=== PATIENT | female | born 2000 | race Caucasian/White ===

== ENCOUNTER 2021-04-27 15:15 | Inpatient (IN) | payer BC ==
[2021-04-27] MEDS ORDERED: Methylergonovine 0.2 MG/1 ML Amp IM PRN (16:03)
[2021-04-27] MEDS ORDERED: Misoprostol 200 MCG Tab PO PRN (16:03)
[2021-04-27] MEDS ORDERED: Water For Irrigation,Sterile 1,000 ML Container IRR PRN (16:03)
[2021-04-27] MEDS ORDERED: Tranexamic Acid 1,000 MG in Sodium Chloride 0.9% 100 ML IV PRN (16:03)
[2021-04-27] MEDS ORDERED: Butorphanol 1 MG/ML SDV IVPUSH PRN (16:03)
[2021-04-27] MEDS ORDERED: Sodium Chloride 0.9% 2.5 ML Syringe FLUSH PRN (16:03)
[2021-04-27] MEDS ORDERED: Sodium Chloride 0.9% 10 ML Syringe FLUSH PRN (16:03)
[2021-04-27] MEDS ORDERED: Ondansetron 4 MG/2 ML SDV IVPUSH PRN ×2 (16:03→23:49)
[2021-04-27] MEDS ORDERED: Carboprost Tromethamine 250 MCG/1 ML Amp IM PRN (16:03)
[2021-04-27] MEDS ORDERED: Sodium Chloride 0.9% 10 ML SDV IV PRN (16:03)
[2021-04-27] MEDS ORDERED: Nalbuphine 10 MG/1 ML Vial IVPUSH PRN (16:03)
[2021-04-27] MEDS ORDERED: Lidocaine 1% 50 ML MDV INJECT PRN (16:03)
[2021-04-27] MEDS ORDERED: Misoprostol 25 MCG (1/4 of 100 MCG) Tab VAG PRN ×2 (16:08)
[2021-04-27] MEDS ORDERED: Terbutaline 1 MG/ML SDV SUBCUT PRN (16:08)
[2021-04-27] MEDS ORDERED: Oxytocin/0.9 % Sodium Chloride 30 UNIT/500 ML BAG IV SCH ×3 (16:15→22:15)
[2021-04-27] MEDS ORDERED: ceFAZolin 2 GM in Premix Bag 1 BAG IV ONE ×2 (17:00→22:07)
[2021-04-27] MEDS: Lactated Ringers 1,000 ML IV SCH ×4 (17:19→23:45)
[2021-04-27 17:24] LABS: BLOOD UREA NITROGEN,BUN 6 mg/dL (7.0-18.0); CARBON DIOXIDE,CO2 17.9 mmol/L (21.0-32.0); CHLORIDE,CL 104 mmol/L (98-107); GLUCOSE RANDOM 72 mg/dL (74-106); POTASSIUM,K 4.2 mmol/L (3.5-5.1); SODIUM,NA 138 mmol/L (136-145)
--- NOTE | 2021-04-27 17:53 | PCM.LDHP ---
L&D History of Present Illness - General Date of Service: 04/27/21 Admit Problem/Dx: Patient Status Order with Admit Dx/Problem 04/27/21 16:00 Patient Status [ADT] Routine Admission Diagnosis/Problem Admission Diagnosis/Problem - History of Present Illness Introduction:: 21yo at 38w4d FIDEL 05/07/2021 by 7w6d US presenting with early labor and rupture of membranes. Patient reports this morning she noticed a small amount of leaking, when she work up at noon she had a bigger gush and bed was wet. She also started having contractions around that time, now is stronger and every 3- 4min. She reports noticed her underwear was consistently wet starting last night, but did not have a large gush. She is GBS+, reports a remote hx of rash with PCN but did take amoxicillin without issues. was complicated by echogenic focus on US, had otherwise normal anatomy. She had cell free DNA testing which was negative. She had weekly testing starting at 37weeks due to obesity. EFW 82% on US (3843g at 39 weeks). She received first dose of Moderna COVID19 vaccine on 04/08/21. - Related Data Allergies/Adverse Reactions: Allergies Allergy/AdvReac Type Severity Reaction Status Date / Time cefixime [From Suprax] Allergy Hives Verified 04/27/21 15:19 Penicillins Allergy Hives Verified 04/27/21 15:20 Past Medical History HEENT History: Reports: None Gastrointestinal History: Reports: Cholelithiasis [employer] History: Reports: None Neurological History: Reports: None Endocrine/Metabolic History: Reports: None Do You Give Correction Boluses or Sliding Scale: No Dermatologic History: Reports: None - Infectious Disease History Infectious Disease History: Reports: None - Past Surgical History Head Surgeries/Procedures: Reports: None HEENT Surgical History: Reports: None Respiratory Surgical History: Reports: None Female Surgical History: Reports: None Endocrine Surgical History: Reports: None Neurological Surgical History: Reports: None Musculoskeletal Surgical History: Reports: None Dermatological Surgical History: Reports: None Social & Family History - Family History HEENT: Reports: None Cardiac: Reports: Hypertension GI: Reports: None - Tobacco Use Tobacco Use Status *Q: Former Tobacco User Used Tobacco, but Quit: Yes Month/Year Tobacco Last Used: 2018 Second Hand Smoke Exposure: No - Caffeine Use Caffeine Use: Reports: Coffee, Energy Drinks, Soda, Tea - Recreational Drug Use Recreational Drug Use: No H&P Review of Systems - Review of Systems: Review Of Systems: See Below General: Reports: No Symptoms HEENT: Reports: No Symptoms Pulmonary: Reports: No Symptoms Cardiovascular: Reports: No Symptoms Gastrointestinal: Reports: No Symptoms Genitourinary: Reports: No Symptoms Musculoskeletal: Reports: No Symptoms Skin: Reports: No Symptoms Psychiatric: Reports: No Symptoms Neurological: Reports: No Symptoms Hematologic/Lymphatic: Reports: No Symptoms Immunologic: Reports: No Symptoms L&D Exam - Exam Exam: See Below - Vital Signs Weight: 250 lb - OB Specific Contraction Frequency (min): q3-4min Contraction Intensity: Moderate Movement: Active Heart Tones per Min: 120 Heart Rate (FHR) Variability: Moderate (6-25 bpm) Presentation: Vertex Estimated Weight: 3843g - Exam General: Alert, Oriented, Cooperative, Mild Distress HEENT: Conjunctiva Clear, Mucosa Moist & [place] Neck: Supple, Trachea Midline Lungs: Normal Respiratory Effort GI/Abdominal Exam: Soft, Non-Tender, No Distention Back Exam: Normal Inspection, Full Range of Motion Extremities: Normal Inspection, Normal Range of Motion, Non-Tender, No Pedal Edema Skin: Warm, Dry, Intact Neurological: Cranial Nerves Intact, Reflexes Equal Bilateral Psychiatric: Alert, Normal Affect, Normal Mood - Patient Data Lab Results Last 24 hrs: Laboratory Results - last 24 hr 04/27/21 04/27/21 04/27/21 Range/Units 15:15 16:10 16:35 WBC 10.26 (4.0-11.0) K/uL RBC 4.85 (4.30-5.90) M/uL Hgb 13.0 (12.0-16.0) g/dL Hct 39.6 (36.0-46.0) % MCV 81.6 (80.0-98.0) fL MCH 26.8 L (27.0-32.0) pg MCHC 32.8 (31.0-37.0) g/dL RDW Std Deviation 43.3 (28.0-62.0) fl RDW Coeff of Kyle 15 (11.0-15.0) % Plt Count 281 (150-400) K/uL MPV 10.50 (7.40-12.00) fL Sodium (136-145) mmol/L Potassium (3.5-5.1) mmol/L Chloride (98-107) mmol/L Carbon Dioxide (21.0-32.0) mmol/L BUN (7.0-18.0) mg/dL Creatinine (0.6-1.0) mg/dL Est Cr Clr Drug Dosing mL/min Estimated GFR (MDRD) ml/min Glucose (74-106) mg/dL Uric Acid (2.6-7.2) mg/dL Calcium (8.5-10.1) mg/dL Total Bilirubin (0.2-1.0) mg/dL AST (15-37) IU/L ALT (14-63) IU/L Alkaline Phosphatase (46-116) U/L Total Protein (6.4-8.2) g/dL Albumin (3.4-5.0) g/dL Globulin (2.6-4.0) g/dL Albumin/Globulin Ratio (0.9-1.6) Ur Random Creatinine 105.2 mg/dL U Random Total Protein 19.5 H (<11.9) mg/dL Protein/Creatinin Ratio 0.2 Membrane Rupture POSITIVE 04/27/21 Range/Units 16:35 WBC (4.0-11.0) K/uL RBC (4.30-5.90) M/uL Hgb (12.0-16.0) g/dL Hct (36.0-46.0) % MCV (80.0-98.0) fL MCH (27.0-32.0) pg MCHC (31.0-37.0) g/dL RDW Std Deviation (28.0-62.0) fl RDW Coeff of Kyle (11.0-15.0) % Plt Count (150-400) K/uL MPV (7.40-12.00) fL Sodium 138 (136-145) mmol/L Potassium 4.2 (3.5-5.1) mmol/L Chloride 104 (98-107) mmol/L Carbon Dioxide 17.9 L (21.0-32.0) mmol/L BUN 6 L (7.0-18.0) mg/dL Creatinine 0.7 (0.6-1.0) mg/dL Est Cr Clr Drug Dosing 121.55 mL/min Estimated GFR (MDRD) > 60.0 ml/min Glucose 72 L (74-106) mg/dL Uric Acid 5.5 (2.6-7.2) mg/dL Calcium 8.5 (8.5-10.1) mg/dL Total Bilirubin 0.2 (0.2-1.0) mg/dL AST 16 (15-37) IU/L ALT 20 (14-63) IU/L Alkaline Phosphatase 219 H (46-116) U/L Total Protein 7.0 (6.4-8.2) g/dL Albumin 2.6 L (3.4-5.0) g/dL Globulin 4.4 H (2.6-4.0) g/dL Albumin/Globulin Ratio 0.6 L (0.9-1.6) Ur Random Creatinine mg/dL U Random Total Protein (<11.9) mg/dL Protein/Creatinin Ratio Membrane Rupture Result Diagrams: 04/27/21 16:35 04/27/21 16:35 Problem List Initiated/Reviewed/Updated: Yes Orders Last 24hrs: Active Orders 24 hr Category Date Time Status Patient Status [ADT] Routine ADT 04/27/21 16:00 Active Bedrest Bathroom Privileges [RC] ASDIRECTED Care 04/27/21 16:08 Active Communication Order [RC] ASDIRECTED Care 04/27/21 16:08 Active Communication Order [RC] ASDIRECTED Care 04/27/21 16:08 Active Heart Tones [RC] CONTINUOUS Care 04/27/21 16:03 Active Non Stress Test [RC] PER UNIT ROUTINE Care 04/27/21 15:20 Active Notify Provider [RC] PRN Care 04/27/21 16:03 Active Notify Provider [RC] PRN Care 04/27/21 16:08 Active Notify Provider [RC] PRN Care 04/27/21 16:08 Active Up ad Justyna [RC] ASDIRECTED Care 04/27/21 15:20 Active Up ad Justyna [RC] ASDIRECTED Care 04/27/21 16:03 Active Vaginal Exam [RC] Click to Edit Care 04/27/21 15:20 Active Vaginal Exam [RC] PRN Care 04/27/21 16:03 Active Vital Signs [RC] PER UNIT ROUTINE Care 04/27/21 15:20 Active CORONAVIRUS COVID-19 BÁRBARA [MOLEC] Routine Lab 04/27/21 16:35 Received RPR (SYPHILIS SERO) W/ RFLX [REF] Routine Lab 04/27/21 16:35 Received TYPE AND SCREEN [BBK] Routine Lab 04/27/21 16:35 Received Butorphanol [Stadol] Med 04/27/21 16:03 Active 1 mg IVPUSH Q1H PRN Carboprost Tromethamine [Hemabate DS] Med 04/27/21 16:03 Active 250 mcg IM ASDIRECTED PRN Lactated Ringers [Ringers, Lactated] 1,000 ml Med 04/27/21 16:15 Active IV ASDIRECTED Lidocaine 1% [Xylocaine 1%] Med 04/27/21 16:03 Active 50 ml INJECT ONETIME PRN Methylergonovine [Methergine] Med 04/27/21 16:03 Active 0.2 mg IM ASDIRECTED PRN Nalbuphine [Nubain] Med 04/27/21 16:03 Active 10 mg IVPUSH Q1H PRN Ondansetron [Zofran] Med 04/27/21 16:03 Active 4 mg IVPUSH Q4H PRN Oxytocin/0.9 % Sodium Chloride [Oxytocin 30 Unit in NS Med 04/27/21 16:15 Active 0.9% 500 ML Premix] 30 unit in 500 ml IV TITRATE Oxytocin/0.9 % Sodium Chloride [Oxytocin 30 Unit in NS Med 04/27/21 16:15 Active 0.9% 500 ML Premix] 30 unit in 500 ml IV TITRATE Sodium Chloride 0.9% [Normal Saline] Med 04/27/21 16:03 Active 10 ml IV ASDIRECTED PRN Sodium Chloride 0.9% [Saline Flush] Med 04/27/21 16:03 Active 10 ml FLUSH ASDIRECTED PRN Sodium Chloride 0.9% [Saline Flush] Med 04/27/21 16:03 Active 2.5 ml FLUSH ASDIRECTED PRN Terbutaline [Brethine] Med 04/27/21 16:08 Active 0.25 mg SUBCUT ASDIRECTED PRN Tranexamic Acid [Cyklokapron] 1,000 mg Med 04/27/21 16:03 Active Sodium Chloride 0.9% [Normal Saline] 100 ml IV ONETIME Water For Irrigation,Sterile [Sterile Water for Med 04/27/21 16:03 Active Irrigation] 1,000 ml IRR ASDIRECTED PRN miSOPROStoL [Cytotec] Med 04/27/21 16:03 Active 200 mcg PO ONETIME PRN miSOPROStoL [Cytotec] Med 04/27/21 16:08 Active 25 mcg VAG ONETIME PRN miSOPROStoL [Cytotec] Med 04/27/21 16:08 Active 25 mcg VAG Q4H PRN Scalp Electrode [WOMSER] Per Unit Routine Oth 04/27/21 16:03 Ordered Medication Administration Instruction [OM.PC] Q3H Oth 04/27/21 16:15 Ordered Peripheral IV Insertion Adult [OM.PC] Routine Oth 04/27/21 16:03 Ordered Resuscitation Status Routine Resus Stat 04/27/21 15:20 Ordered Medication Orders Butorphanol Tartrate (Butorphanol 1 Mg/Ml Sdv) 1 mg IVPUSH Q1H PRN PRN Reason: Pain (severe 7-10) Carboprost Tromethamine (Carboprost Tromethamine 250 Mcg/1 Ml Amp) 250 mcg IM ASDIRECTED PRN PRN Reason: Post Hemorrhage Lactated Ringer's (Ringers, Lactated) 1,000 mls @ 150 mls/hr IV ASDIRECTED MIGUEL ÁNGEL Last Admin: 04/27/21 17:19 Dose: 150 mls/hr Documented by: ROCHELLE Oxytocin/Sodium Chloride (Oxytocin 30 Unit In Ns 0.9% 500 Ml Premix) 30 unit in 500 mls @ 500 mls/hr IV TITRATE MIGUEL ÁNGEL Tranexamic Acid 1,000 mg/ (Sodium Chloride) 110 mls @ 660 mls/hr IV ONETIME PRN PRN Reason: Bleeding Oxytocin/Sodium Chloride (Oxytocin 30 Unit In Ns 0.9% 500 Ml Premix) 30 unit in 500 mls @ 2 mls/hr IV TITRATE [facility]; Protocol Lidocaine HCl (Lidocaine 1% 50 Ml Mdv) 50 ml INJECT ONETIME PRN PRN Reason: Laceration repair Methylergonovine Maleate (Methylergonovine 0.2 Mg/1 Ml Amp) 0.2 mg IM ASDIRECTED PRN PRN Reason: Post Hemorrhage Misoprostol (Misoprostol 200 Mcg Tab) 200 mcg PO ONETIME PRN PRN Reason: Post Hemorrhage Misoprostol (Misoprostol 25 Mcg (1/4 Of 100 Mcg) Tab) 25 mcg VAG ONETIME PRN PRN Reason: Cervical Ripening Misoprostol (Misoprostol 25 Mcg (1/4 Of 100 Mcg) Tab) 25 mcg VAG Q4H PRN PRN Reason: Cervical Ripening Nalbuphine HCl (Nalbuphine 10 Mg/1 Ml Vial) 10 mg IVPUSH Q1H PRN PRN Reason: Pain (severe 7-10) Ondansetron HCl (Ondansetron 4 Mg/2 Ml Sdv) 4 mg IVPUSH Q4H PRN PRN Reason: Nausea/Vomiting Sodium Chloride (Sodium Chloride 0.9% 10 Ml Syringe) 10 ml FLUSH ASDIRECTED PRN PRN Reason: Keep Vein Open Sodium Chloride (Sodium Chloride 0.9% 2.5 Ml Syringe) 2.5 ml FLUSH ASDIRECTED PRN PRN Reason: Keep Vein Open Sodium Chloride (Sodium Chloride 0.9% 10 Ml Sdv) 10 ml IV ASDIRECTED PRN PRN Reason: IV Use Sterile Water (Water For Irrigation,Sterile 1,000 Ml Container) 1,000 ml IRR ASDIRECTED PRN PRN Reason: delivery Terbutaline Sulfate (Terbutaline 1 Mg/Ml Sdv) 0.25 mg SUBCUT ASDIRECTED PRN PRN Reason: Tacysystole Assessment/Plan Comment:: 21yo at 38w4d presenting with early labor and SROM. Reassuring maternal and status. - admit to inpatient, CBC, RPR, T&S, COVID19 test - Cat 1 tracing - /-2 per patient nurse - Amniosure positive, unclear time for ROM, no signs of chorioamnionitis - GBS+, will start ancef IV with mild PCN allergy - will start pitocin for augmentation - pain meds and epidural PRN Patient signed out to who will be assuming care.
[2021-04-27] MEDS ORDERED: Ropivacaine HCl/PF 200 ML ONE (19:22)
--- NOTE | 2021-04-27 19:46 | PCM.PREANE ---
Preanesthetic Assessment - Anesthesia/Transfusion/Family Hx Anesthesia History: Prior Anesthesia Without Reaction Family History of Anesthesia Reaction: No Transfusion History: No Prior Transfusion(s) - Review of Systems General: No Symptoms Pulmonary: No Symptoms, Other (Pt states to having active cold with no ) Cardiovascular: No Symptoms, Other (HTN with admission. pt denies acclampsia.) Gastrointestinal: No Symptoms, Other (GERD) Neurological: No Symptoms Other: Reports: None - Physical Assessment NPO Status Date: 04/27/21 NPO Status Time: 16:00 Height: 1.7 m Weight: 113.398 kg ASA Class: 2 Mental Status: Alert & Oriented x3 Airway Class: Mallampati = 3 Dentition: Reports: Normal Dentition Thyro-Mental Finger Breadths: 3 Mouth Opening Finger Breadths: 3 ROM/Head Extension: Full Lungs: Clear to Auscultation, Normal Respiratory Effort Cardiovascular: Regular Rate, Regular Rhythm - Lab Values: Laboratory Last Values WBC 10.26 K/uL (4.0-11.0) 04/27/21 16:35 RBC 4.85 M/uL (4.30-5.90) 04/27/21 16:35 Hgb 13.0 g/dL (12.0-16.0) 04/27/21 16:35 Hct 39.6 % (36.0-46.0) 04/27/21 16:35 MCV 81.6 fL (80.0-98.0) 04/27/21 16:35 MCH 26.8 pg (27.0-32.0) L 04/27/21 16:35 MCHC 32.8 g/dL (31.0-37.0) 04/27/21 16:35 RDW Std Deviation 43.3 fl (28.0-62.0) 04/27/21 16:35 RDW Coeff of Kyle 15 % (11.0-15.0) 04/27/21 16:35 Plt Count 281 K/uL (150-400) 04/27/21 16:35 MPV 10.50 fL (7.40-12.00) 04/27/21 16:35 Sodium 138 mmol/L (136-145) 04/27/21 16:35 Potassium 4.2 mmol/L (3.5-5.1) 04/27/21 16:35 Chloride 104 mmol/L (98-107) 04/27/21 16:35 Carbon Dioxide 17.9 mmol/L (21.0-32.0) L 04/27/21 16:35 BUN 6 mg/dL (7.0-18.0) L 04/27/21 16:35 Creatinine 0.7 mg/dL (0.6-1.0) 04/27/21 16:35 Est Cr Clr Drug Dosing 121.55 mL/min 04/27/21 16:35 Estimated GFR (MDRD) > 60.0 ml/min 04/27/21 16:35 Glucose 72 mg/dL (74-106) L 04/27/21 16:35 Uric Acid 5.5 mg/dL (2.6-7.2) 04/27/21 16:35 Calcium 8.5 mg/dL (8.5-10.1) 04/27/21 16:35 Total Bilirubin 0.2 mg/dL (0.2-1.0) 04/27/21 16:35 AST 16 IU/L (15-37) 04/27/21 16:35 ALT 20 IU/L (14-63) 04/27/21 16:35 Alkaline Phosphatase 219 U/L (46-116) H 04/27/21 16:35 Total Protein 7.0 g/dL (6.4-8.2) 04/27/21 16:35 Albumin 2.6 g/dL (3.4-5.0) L 04/27/21 16:35 Globulin 4.4 g/dL (2.6-4.0) H 04/27/21 16:35 Albumin/Globulin Ratio 0.6 (0.9-1.6) L 04/27/21 16:35 Ur Random Creatinine 105.2 mg/dL 04/27/21 16:10 U Random Total Protein 19.5 mg/dL (<11.9) H 04/27/21 16:10 Protein/Creatinin Ratio 0.2 04/27/21 16:10 Membrane Rupture POSITIVE 04/27/21 15:15 SARS-CoV-2 RNA (BÁRBARA) NEGATIVE (NEGATIVE) 04/27/21 16:35 Blood Type A POSITIVE 04/27/21 16:35 Antibody Screen NEGATIVE 04/27/21 16:35 - Allergies Allergies/Adverse Reactions: Allergies Allergy/AdvReac Type Severity Reaction Status Date / Time cefixime [From Suprax] Allergy Hives Verified 04/27/21 15:19 Penicillins Allergy Hives Verified 04/27/21 15:20 - Blood Blood Available: Yes Product(s) Available: PRBC (type and screen) - Anesthesia Plan Pre-Op Medication Ordered: None - Acknowledgements Anesthesia Type Planned: Epidural Pt an Appropriate Candidate for the Planned Anesthesia: Yes Alternatives and Risks of Anesthesia Discussed w Pt/Guardian: Yes Pt/Guardian Understands and Agrees with Anesthesia Plan: Yes PreAnesthesia Questionnaire HEENT History: Reports: None Gastrointestinal History: Reports: Cholelithiasis [employer] History: Reports: None Neurological History: Reports: None Endocrine/Metabolic History: Reports: None Dermatologic History: Reports: None - Infectious Disease History Infectious Disease History: Reports: None - Past Surgical History Head Surgeries/Procedures: Reports: None HEENT Surgical History: Reports: None Respiratory Surgical History: Reports: None Female Surgical History: Reports: None Endocrine Surgical History: Reports: None Neurological Surgical History: Reports: None Musculoskeletal Surgical History: Reports: None Dermatological Surgical History: Reports: None - SUBSTANCE USE Tobacco Use Status *Q: Former Tobacco User Tobacco Use Within Last Twelve Months: Cigarettes Second Hand Smoke Exposure: No Recreational Drug Use History: No - CURRENT (IN HOUSE) MEDS Current Meds: Current Medications Butorphanol Tartrate (Butorphanol 1 Mg/Ml Sdv) 1 mg IVPUSH Q1H PRN PRN Reason: Pain (severe 7-10) Carboprost Tromethamine (Carboprost Tromethamine 250 Mcg/1 Ml Amp) 250 mcg IM ASDIRECTED PRN PRN Reason: Post Hemorrhage Lactated Ringer's (Ringers, Lactated) 1,000 mls @ 150 mls/hr IV ASDIRECTED MIGUEL ÁNGEL Last Admin: 04/27/21 18:14 Dose: 150 mls/hr Documented by: Oxytocin/Sodium Chloride (Oxytocin 30 Unit In Ns 0.9% 500 Ml Premix) 30 unit in 500 mls @ 500 mls/hr IV TITRATE MIGUEL ÁNGEL Tranexamic Acid 1,000 mg/ (Sodium Chloride) 110 mls @ 660 mls/hr IV ONETIME PRN PRN Reason: Bleeding Oxytocin/Sodium Chloride (Oxytocin 30 Unit In Ns 0.9% 500 Ml Premix) 30 unit in 500 mls @ 2 mls/hr IV TITRATE MIGUEL ÁNGEL; Protocol Lidocaine HCl (Lidocaine 1% 50 Ml Mdv) 50 ml INJECT ONETIME PRN PRN Reason: Laceration repair Methylergonovine Maleate (Methylergonovine 0.2 Mg/1 Ml Amp) 0.2 mg IM ASDIRECTED PRN PRN Reason: Post Hemorrhage Misoprostol (Misoprostol 200 Mcg Tab) 200 mcg PO ONETIME PRN PRN Reason: Post Hemorrhage Misoprostol (Misoprostol 25 Mcg (1/4 Of 100 Mcg) Tab) 25 mcg VAG ONETIME PRN PRN Reason: Cervical Ripening Misoprostol (Misoprostol 25 Mcg (1/4 Of 100 Mcg) Tab) 25 mcg VAG Q4H PRN PRN Reason: Cervical Ripening Nalbuphine HCl (Nalbuphine 10 Mg/1 Ml Vial) 10 mg IVPUSH Q1H PRN PRN Reason: Pain (severe 7-10) Ondansetron HCl (Ondansetron 4 Mg/2 Ml Sdv) 4 mg IVPUSH Q4H PRN PRN Reason: Nausea/Vomiting Sodium Chloride (Sodium Chloride 0.9% 10 Ml Syringe) 10 ml FLUSH ASDIRECTED PRN PRN Reason: Keep Vein Open Sodium Chloride (Sodium Chloride 0.9% 2.5 Ml Syringe) 2.5 ml FLUSH ASDIRECTED PRN PRN Reason: Keep Vein Open Sodium Chloride (Sodium Chloride 0.9% 10 Ml Sdv) 10 ml IV ASDIRECTED PRN PRN Reason: IV Use Sterile Water (Water For Irrigation,Sterile 1,000 Ml Container) 1,000 ml IRR ASDIRECTED PRN PRN Reason: delivery Terbutaline Sulfate (Terbutaline 1 Mg/Ml Sdv) 0.25 mg SUBCUT ASDIRECTED PRN PRN Reason: Tacysystole Discontinued Medications Cefazolin Sodium/Dextrose 2 gm (/ Premix) 50 mls @ 100 mls/hr IV ONETIME ONE Stop: 04/27/21 17:29 Cefazolin Sodium/Dextrose (Ancef 2 Gm/50 Ml) Confirm Administered Dose 50 mls @ as directed .ROUTE .STK-MED ONE Stop: 04/27/21 17:10 Last Admin: 04/27/21 17:17 Dose: 100 mls/hr Documented by: Ropivacaine (Naropin 0.2%) Confirm Administered Dose 200 mls @ as directed .ROUTE .[facility]-MED ONE Stop: 04/27/21 19:23
--- NOTE | 2021-04-27 19:52 | PCM.SN.2 ---
Time Documentation - Pre-Procedure Checklist Attending Provider Aware: Yes Chart Reviewed: Yes Consent Signed: Yes Labs Reviewed: Yes VS/FHR Reviewed: Yes Patient Identification Confirmation Method: Reports: Chart Visual, Verbal Patient Pt an Appropriate Candidate for the Planned Anesthesia: Yes Alternatives and Risks of Anesthesia Discussed w Pt/Guardian: Yes - Procedure Procedure Start Date: 04/27/21 Procedure Start Time: 19:[address]: Reports: Blood Pressure, Heart Rate, SPO2 Functional IV: Yes Safety Measures: Reports: Patient Identified, Procedure Verified, Site Verified, Procedure Time Out Patient Position: Reports: Sitting Prep: Reports: Betadine x3 Local Anesthetic: Reports: Intradermal Wheal w Lidocaine 1% (3 ML) Regional Placement Level: Reports: L3-4 Needle: Reports: 17 g Touhy Approach: Reports: Midline Technique: Reports: FAROOQ Glass Syringe Parasthesia: Reports: None Fluid Obtained: Reports: None Catheter Depth at Skin (cm): 6 cm Test Dose Time: 19:17 Test Dose Medication: Reports: Lidocaine 1.5% w Epinephrine 1:200,000 (5 ml) Test Dose Response: Reports: Negative Loading Dose Time: 19:27 Loading Dose Medication: Ropivicaine 0.2% PF Loading Dose Patient Position: Supine with LUT Continuous Infusion Start Time: 19:28 Continuous Infusion Medication: Ropivicaine 0.2% PF Continuous Infusion Rate: 12 Continuous Infusion PCS Bolus Option: 6 Continuous Infusion Lockout Dose (cc/hr): 20 Patient Position Post Placement: Reports: Supline/JEFFRY Post-procedure Pain Level: 2 VS and FHR Monitored in Unit Post Placement: Yes Procedure End Date: 04/27/21 Procedure End Time: 19:28 Procedure Comment: Sterile technique used throughout.
[2021-04-27] MEDS ORDERED: ePHEDrine 50 MG/ML SDV IVPUSH PRN (19:54)
--- NOTE | 2021-04-27 19:54 | PCM.POSTAN ---
POST ANESTHESIA ASSESSMENT - MENTAL STATUS Mental Status: Alert - RESPIRATORY Respiratory Status: Respiratory Rate WNL, Airway Patent, O2 Saturation Stable - CARDIOVASCULAR CV Status: Pulse Rate WNL, Blood Pressure Stable - GASTROINTESTINAL GI Status: No Symptoms - POST OP HYDRATION Hydration Status: Adequate & Stable
[2021-04-27] MEDS ORDERED: Ropivacaine/PF 400 MG/200 ML PCA EPIDUR SCH (20:00)
[2021-04-27] MEDS ORDERED: Azithromycin 500 MG in Sodium Chloride 0.9% 250 ML IV ONE (22:07)
[2021-04-27] MEDS ORDERED: Citric Acid/Sodium Citrate Solution 30 ML Cup PO ONE (22:07)
[2021-04-27] MEDS ORDERED: Lactated Ringers 1,000 ML IV SCH (22:15)
[2021-04-27] MEDS ORDERED: Azithromycin 500 MG Vial ONE (22:27)
[2021-04-27] MEDS ORDERED: Sodium Chloride 0.9% 250 ML ONE (22:28)
[2021-04-27] MEDS ORDERED: fentaNYL 100 MCG/2 ML SDV ONE (23:16)
[2021-04-27] MEDS ORDERED: Oxytocin 10 Units/1 ML SDV ONE (23:17)
[2021-04-27] MEDS ORDERED: ePHEDrine 50 MG/ML SDV ONE (23:17)
[2021-04-27] MEDS ORDERED: Ondansetron 4 MG/2 ML SDV ONE (23:17)
[2021-04-27] MEDS ORDERED: Glycopyrrolate 0.2 MG/ML SDV ONE (23:17)
[2021-04-27] MEDS ORDERED: Oxytocin/Lactated Ringers 30 UNIT/500 ML BAG IV SCH (23:45)
[2021-04-27] MEDS ORDERED: Lanolin 100% Cream 7 GM Tube TOP PRN (23:49)
[2021-04-27] MEDS ORDERED: Bisacodyl 10 MG Supp RECTAL PRN (23:49)
[2021-04-27] MEDS ORDERED: Acetaminophen/oxyCODONE 325-5 MG Tab PO PRN (23:49)
[2021-04-27] MEDS ORDERED: diphenhydrAMINE 50 MG/ML SDV IVPUSH PRN (23:49)
--- NOTE | 2021-04-27 23:59 | PCM.OPNOTE ---
- General Post-Op/Procedure Note Date of Surgery/Procedure: 04/27/21 Operative Procedure(s): Primary low-transverse section Findings: Live female , Apgars 8/9, weight 3250g. Nuchal cord x1. Purulent amniotic fluid. Placenta intact and with 3-vessel cord. Normal-appearing uterus, ovaries, fallopian tubes. Pre Op Diagnosis: 21yo @ 38w4d. Non-reassuring heart tones. Prolonged rupture of membranes. GBS+. Maternal obesity Post-Op Diagnosis: 21yo @ 38w4d. Non-reassuring heart tones. Prolonged rupture of membranes with suspected developing intraamniotic infection. GBS+. Maternal obesity Anesthesia Technique: Epidural Primary Surgeon: Chasity Banerjee Anesthesia Provider: Ben Goetz Pathology: Placenta, cord gases, cord blood Fluid Replacement, Intraop: 1,000 Output, Urine Amount: 300 EBL in mLs: 600 Complications: None Condition: Good Free Text/Narrative:: Intake & Output 04/27/21 04/27/21 04/28/21 14:59 22:59 06:59 Intake Total 1000 Balance 1000 2g Ancef IV and 500mg Azithromycin IV given for antibiotic prophylaxis Vaginal prep due to prolonged rupture of membranes
--- NOTE | 2021-04-28 00:01 | PCM.POSTAN ---
POST ANESTHESIA ASSESSMENT - MENTAL STATUS Mental Status: Alert (Epidural catheter removed with blue tip intact following C Section) - RESPIRATORY Respiratory Status: Respiratory Rate WNL, Airway Patent, O2 Saturation Stable - CARDIOVASCULAR CV Status: Pulse Rate WNL, Blood Pressure Stable - GASTROINTESTINAL GI Status: No Symptoms - POST OP HYDRATION Hydration Status: Adequate & Stable
--- NOTE | 2021-04-28 00:01 | PCM48HPAN ---
Post Anesthesia Note - EVALUATION WITHIN 48HRS OF ANESTHETIC Vital Signs in Normal Range: Yes Patient Participated in Evaluation: Yes Respiratory Function Stable: Yes Airway Patent: Yes Cardiovascular Function Stable: Yes Hydration Status Stable: Yes Pain Control Satisfactory: Yes Nausea and Vomiting Control Satisfactory: Yes Mental Status Recovered: Yes
--- NOTE | 2021-04-28 01:06 | OR ---
SURGEON: Chasity Banerjee MD DATE OF PROCEDURE: 04/27/2021 PREOPERATIVE DIAGNOSES: 1. A 21-year-old, G1, P0 at 38 weeks and 4 days' gestation. 2. Non-reassuring heart tones. 3. Prolonged rupture of membranes. 4. Group B Streptococcus positive. 5. Maternal obesity. POSTOPERATIVE DIAGNOSES: 1. 21-year-old G1, P1-0-0-1 at 38 weeks and 4 days' gestation. 2. Non-reassuring heart tones. 3. Prolonged rupture of membranes with suspected developing intraamniotic infection. 4. Group B Streptococcus positive. 5. Maternal obesity. PRIMARY SURGEON: Chasity Banerjee MD. ANESTHESIA: Epidural by Ben Julian. PATHOLOGY: Placenta, cord gases, cord blood. IV FLUIDS: 1000 mL LR. URINE OUTPUT: 300 mL. ESTIMATED BLOOD LOSS: 600 mL. ANTIBIOTIC PROPHYLAXIS: 2 g of Ancef IV and 500 mg azithromycin IV, vaginal prep. COMPLICATIONS: None. FINDINGS: Live female infant in cephalic presentation. score of 8 and 9 at one and five minutes respectively. Weight 3250 g. Nuchal cord x1. Purulent amniotic fluid. Placenta intact with 3-vessel cord. Normal-appearing uterus, ovaries, fallopian tubes. INDICATIONS: This is a 21-year-old, G1, P0, at 38 weeks and 4 days gestation who presented complaining of contractions and leaking of fluid. She stated she had been feeling leaking since the night prior. Upon presentation, the patient's cervix was found to be 2 cm dilated and rupture of membranes was confirmed. She was graeme irregularly. She was admitted to Labor and Delivery. Ancef was started for group B strep prophylaxis. COVID swab was negative. The patient began graeme more frequently and changed to 3 cm dilated. An epidural was obtained for pain control. At this time, recurrent late deceleration were noted in the heart tones. Intrauterine resuscitative measures were performed with temporary resolution of the decelerations. Recurrent late deceleration developed second time. At this time, due to minimal cervical change and recurrent late decelerations, discussion was held with the patient and her regarding continued expectant management of labor versus proceeding with primary delivery. With shared decision making, the patient decided to proceed with primary delivery. The risks and benefits were reviewed with the patient. DESCRIPTION OF PROCEDURE: The patient was seen in the operating room where epidural was found to be adequate. She was placed in dorsal supine position with a leftward tilt. Vaginal prep and abdominal prep were performed. The patient was draped in normal sterile fashion. A Pfannenstiel skin incision was made with a scalpel and carried through to the underlying layer of fascia with Bovie. The fascia was incised in the midline and incision extended laterally with curved Rainey scissors. The superior aspect of the fascial incision was grasped with Amanda clamps, elevated, and underlying rectus muscles dissected off bluntly. In a similar fashion, the inferior aspect of fascial incision was grasped with Amanda clamps, elevated, and underlying rectus muscles was dissected off bluntly. The peritoneum was identified in the midline and entered bluntly with a digit. The peritoneal incision was extended using manual traction. A large Lm retractor was placed. A bladder flap was created in the usual fashion. A low uterine hysterotomy was created with a scalpel. The uterine incision was extended using manual traction. At this time, purulent amniotic fluid was noted. The head was delivered atraumatically followed by shoulders and the remainder of the body. Nuchal cord x1 was reduced after delivery of the body. The cord was clamped and cut and the was handed off to the awaiting husker operator, respiratory therapist and nurse. Cord blood and cord gases were obtained. Placenta was then delivered intact with 3-vessel cord using manual traction. The uterus was cleared of all clots and debris. The hysterotomy was repaired with a running lock stitch of 0 Vicryl suture. A second stitch of the same suture was used to obtain hemostasis. The uterus was returned to the abdomen. The gutters were cleared of all clots. The fascia was closed with a running stitch of 0 Vicryl suture. The subcutaneous tissue was closed with a running stitch of 3-0 Vicryl suture. Skin was closed with 4-0 Monocryl in a subcuticular fashion. All sponge, lap, needle counts were correct x2. The patient and infant tolerated the delivery well. [id number] / MODL /[id number]
[2021-04-28] MEDS: Ketorolac 30 MG/ML SDV IVPUSH SCH ×4 (01:18→19:30)
[2021-04-28] MEDS: Lactated Ringers 1,000 ML IV SCH ×2 (01:47→09:55)
[2021-04-28] MEDS: Acetaminophen/oxyCODONE 325-5 MG Tab PO PRN ×4 (07:01→20:24)
[2021-04-28] MEDS ORDERED: HYDROmorphone 1 MG/ML Syringe IVPUSH ONE (07:59)
--- NOTE | 2021-04-28 08:07 | PCM.PNPP ---
- General Info Date of Service: 04/28/21 Functional Status: Reports: Pain Controlled, Tolerating Diet, Other (Fisher in place with good UO. Has not ambulated so far. ) - Review of Systems General: Reports: No Symptoms HEENT: Reports: No Symptoms Pulmonary: Reports: No Symptoms Cardiovascular: Reports: No Symptoms Gastrointestinal: Reports: No Symptoms Genitourinary: Reports: No Symptoms Musculoskeletal: Reports: No Symptoms Skin: Reports: No Symptoms Neurological: Reports: No Symptoms Psychiatric: Reports: No Symptoms - Patient Data Vital Signs - Most Recent: Last Vital Signs Temp 36.8 C 04/28/21 04:00 Pulse 106 H 04/28/21 04:00 Resp 17 04/28/21 04:00 BP 127/74 04/28/21 04:00 Pulse Ox Weight - Most Recent: 250 lb I&O - Last 24 Hours: Intake & Output 04/27/21 04/28/21 04/28/21 22:59 06:59 14:59 Intake Total 1000 2000 Output Total 200 2100 350 Balance 800 -100 -350 Lab Results - Last 24 Hours: Laboratory Results - last 24 hr 04/27/21 04/27/21 04/27/21 Range/Units 15:15 16:10 16:35 WBC 10.26 (4.0-11.0) K/uL RBC 4.85 (4.30-5.90) M/uL Hgb 13.0 (12.0-16.0) g/dL Hct 39.6 (36.0-46.0) % MCV 81.6 (80.0-98.0) fL MCH 26.8 L (27.0-32.0) pg MCHC 32.8 (31.0-37.0) g/dL RDW Std Deviation 43.3 (28.0-62.0) fl RDW Coeff of Kyle 15 (11.0-15.0) % Plt Count 281 (150-400) K/uL MPV 10.50 (7.40-12.00) fL Cord ABG pH (7.18-7.38) Cord ABG Base Excess (-10--2) Cord VBG pH (7.25-7.45) Cord VBG Base Excess (-10--2) Sodium (136-145) mmol/L Potassium (3.5-5.1) mmol/L Chloride (98-107) mmol/L Carbon Dioxide (21.0-32.0) mmol/L BUN (7.0-18.0) mg/dL Creatinine (0.6-1.0) mg/dL Est Cr Clr Drug Dosing mL/min Estimated GFR (MDRD) ml/min Glucose (74-106) mg/dL Uric Acid (2.6-7.2) mg/dL Calcium (8.5-10.1) mg/dL Total Bilirubin (0.2-1.0) mg/dL AST (15-37) IU/L ALT (14-63) IU/L Alkaline Phosphatase (46-116) U/L Total Protein (6.4-8.2) g/dL Albumin (3.4-5.0) g/dL Globulin (2.6-4.0) g/dL Albumin/Globulin Ratio (0.9-1.6) Ur Random Creatinine 105.2 mg/dL U Random Total Protein 19.5 H (<11.9) mg/dL Protein/Creatinin Ratio 0.2 Membrane Rupture POSITIVE SARS-CoV-2 RNA (BÁRBARA) (NEGATIVE) Blood Type Antibody Screen 04/27/21 04/27/21 04/27/21 Range/Units 16:35 16:35 16:35 WBC (4.0-11.0) K/uL RBC (4.30-5.90) M/uL Hgb (12.0-16.0) g/dL Hct (36.0-46.0) % MCV (80.0-98.0) fL MCH (27.0-32.0) pg MCHC (31.0-37.0) g/dL RDW Std Deviation (28.0-62.0) fl RDW Coeff of Kyle (11.0-15.0) % Plt Count (150-400) K/uL MPV (7.40-12.00) fL Cord ABG pH (7.18-7.38) Cord ABG Base Excess (-10--2) Cord VBG pH (7.25-7.45) Cord VBG Base Excess (-10--2) Sodium 138 (136-145) mmol/L Potassium 4.2 (3.5-5.1) mmol/L Chloride 104 (98-107) mmol/L Carbon Dioxide 17.9 L (21.0-32.0) mmol/L BUN 6 L (7.0-18.0) mg/dL Creatinine 0.7 (0.6-1.0) mg/dL Est Cr Clr Drug Dosing 121.55 mL/min Estimated GFR (MDRD) > 60.0 ml/min Glucose 72 L (74-106) mg/dL Uric Acid 5.5 (2.6-7.2) mg/dL Calcium 8.5 (8.5-10.1) mg/dL Total Bilirubin 0.2 (0.2-1.0) mg/dL AST 16 (15-37) IU/L ALT 20 (14-63) IU/L Alkaline Phosphatase 219 H (46-116) U/L Total Protein 7.0 (6.4-8.2) g/dL Albumin 2.6 L (3.4-5.0) g/dL Globulin 4.4 H (2.6-4.0) g/dL Albumin/Globulin Ratio 0.6 L (0.9-1.6) Ur Random Creatinine mg/dL U Random Total Protein (<11.9) mg/dL Protein/Creatinin Ratio Membrane Rupture SARS-CoV-2 RNA (BÁRBARA) NEGATIVE (NEGATIVE) Blood Type A POSITIVE Antibody Screen NEGATIVE 04/27/21 04/28/21 Range/Units 23:04 04:29 WBC (4.0-11.0) K/uL RBC (4.30-5.90) M/uL Hgb 10.2 L (12.0-16.0) g/dL Hct 31.6 L (36.0-46.0) % MCV (80.0-98.0) fL MCH (27.0-32.0) pg MCHC (31.0-37.0) g/dL RDW Std Deviation (28.0-62.0) fl RDW Coeff of Kyle (11.0-15.0) % Plt Count (150-400) K/uL MPV (7.40-12.00) fL Cord ABG pH 7.243 (7.18-7.38) Cord ABG Base Excess -7 (-10--2) Cord VBG pH 7.272 (7.25-7.45) Cord VBG Base Excess -8 (-10--2) Sodium (136-145) mmol/L Potassium (3.5-5.1) mmol/L Chloride (98-107) mmol/L Carbon Dioxide (21.0-32.0) mmol/L BUN (7.0-18.0) mg/dL Creatinine (0.6-1.0) mg/dL Est Cr Clr Drug Dosing mL/min Estimated GFR (MDRD) ml/min Glucose (74-106) mg/dL Uric Acid (2.6-7.2) mg/dL Calcium (8.5-10.1) mg/dL Total Bilirubin (0.2-1.0) mg/dL AST (15-37) IU/L ALT (14-63) IU/L Alkaline Phosphatase (46-116) U/L Total Protein (6.4-8.2) g/dL Albumin (3.4-5.0) g/dL Globulin (2.6-4.0) g/dL Albumin/Globulin Ratio (0.9-1.6) Ur Random Creatinine mg/dL U Random Total Protein (<11.9) mg/dL Protein/Creatinin Ratio Membrane Rupture SARS-CoV-2 RNA (BÁRBARA) (NEGATIVE) Blood Type Antibody Screen Med Orders - Current: Current Medications Bisacodyl (Bisacodyl 10 Mg Supp) 10 mg RECTAL ONETIME PRN PRN Reason: Constipation Diphenhydramine HCl (Diphenhydramine 50 Mg/Ml Sdv) 25 mg IVPUSH Q6H PRN PRN Reason: Itching or Nausea Docusate Sodium (Docusate Sodium 100 Mg Cap) 100 mg PO BID MIGUEL ÁNGEL Emollient Ointment (Lanolin 100% Cream 7 Gm Tube) 0 gm TOP ASDIRECTED PRN PRN Reason: Sore Nipples Ephedrine Sulfate (Ephedrine 50 Mg/Ml Sdv) 10 mg IVPUSH Q1M PRN PRN Reason: Hypotension Hydromorphone HCl (Hydromorphone 1 Mg/Ml Syringe) 0.5 mg IVPUSH ONETIME ONE Stop: 04/28/21 08:00 Oxytocin/Sodium Chloride (Oxytocin 30 Unit In Ns 0.9% 500 Ml Premix) 30 unit in 500 mls @ 2 mls/hr IV TITRATE MIGUEL ÁNGEL; Protocol Lactated Ringer's (Ringers, Lactated) 1,000 mls @ 500 mls/hr IV [facility] Last Admin: 04/27/21 22:30 Dose: 500 mls/hr Documented by: Oxytocin/Sodium Chloride (Oxytocin 30 Unit In Ns 0.9% 500 Ml Premix) 30 unit in 500 mls @ 250 mls/hr IV TITRATE MIGUEL ÁNGEL Lactated Ringer's (Ringers, Lactated) 1,000 mls @ 125 mls/hr IV ASDIRECTED [facility] Last Admin: 04/28/21 01:47 Dose: 125 mls/hr Documented by: Oxytocin/Lactated Ringer's (Pitocin In Lr 30 Units/500 Ml) 30 unit in 500 mls @ 999 mls/hr IV TITRATE MIGUEL ÁNGEL Ibuprofen (Ibuprofen 800 Mg Tab) 800 mg PO Q8H PRN PRN Reason: Cramping Ketorolac Tromethamine (Ketorolac 30 Mg/Ml Sdv) 30 mg IVPUSH Q6H [facility] Stop: 04/29/21 01:16 Last Admin: 04/28/21 07:01 Dose: 30 mg Documented by: Miscellaneous Medication (Phenylephrine Hcl In 0.9% Nacl 1 Mg/10 Ml Syringe) 0.1 mg IVPUSH Q1M PRN PRN Reason: Hypotension Misoprostol (Misoprostol 25 Mcg (1/4 Of 100 Mcg) Tab) 25 mcg VAG ONETIME PRN PRN Reason: Cervical Ripening Misoprostol (Misoprostol 25 Mcg (1/4 Of 100 Mcg) Tab) 25 mcg VAG Q4H PRN PRN Reason: Cervical Ripening Ondansetron HCl (Ondansetron 4 Mg/2 Ml Sdv) 4 mg IVPUSH Q4H PRN PRN Reason: Nausea/Vomiting Oxycodone/Acetaminophen (Acetaminophen/Oxycodone 325-5 Mg Tab) 1 tab PO Q4H PRN PRN Reason: Pain (severe 7-10) Oxycodone/Acetaminophen (Acetaminophen/Oxycodone 325-5 Mg Tab) 2 tab PO Q4H PRN PRN Reason: Pain (severe 7-10) Last Admin: 04/28/21 07:01 Dose: 2 tab Documented by: Ropivacaine (Ropivacaine/Pf 400 Mg/200 Ml Clay Press Operator) 400 mg EPIDUR ASDIRECTED [facility] Sodium Chloride (Sodium Chloride 0.9% 10 Ml Syringe) 10 ml FLUSH ASDIRECTED PRN PRN Reason: Keep Vein Open Sodium Chloride (Sodium Chloride 0.9% 2.5 Ml Syringe) 2.5 ml FLUSH ASDIRECTED PRN PRN Reason: Keep Vein Open Sodium Chloride (Sodium Chloride 0.9% 10 Ml Sdv) 10 ml IV ASDIRECTED PRN PRN Reason: IV Use Terbutaline Sulfate (Terbutaline 1 Mg/Ml Sdv) 0.25 mg SUBCUT ASDIRECTED PRN PRN Reason: Tacysystole Discontinued Medications Azithromycin (Azithromycin 500 Mg Vial) Confirm Administered Dose 500 mg .ROUTE .STK-MED ONE Stop: 04/27/21 22:28 Butorphanol Tartrate (Butorphanol 1 Mg/Ml Sdv) 1 mg IVPUSH Q1H PRN PRN Reason: Pain (severe 7-10) Carboprost Tromethamine (Carboprost Tromethamine 250 Mcg/1 Ml Amp) 250 mcg IM ASDIRECTED PRN PRN Reason: Post Hemorrhage Citric Acid/Sodium Citrate (Citric Acid/Sodium Citrate Solution 30 Ml Cup) 30 ml PO ONETIME ONE Stop: 04/27/21 22:08 Last Admin: 04/28/21 00:35 Dose: Not Given Documented by: Ephedrine Sulfate (Ephedrine 50 Mg/Ml Sdv) Confirm Administered Dose 50 mg .ROUTE .STK-MED ONE Stop: 04/27/21 23:18 Fentanyl (Fentanyl 100 Mcg/2 Ml Sdv) Confirm Administered Dose 100 mcg .ROUTE . STK-MED ONE Stop: 04/27/21 23:17 Glycopyrrolate (Glycopyrrolate 0.2 Mg/Ml Sdv) Confirm Administered Dose 0.4 mg .ROUTE .STK-MED ONE Stop: 04/27/21 23:18 Lactated Ringer's (Ringers, Lactated) 1,000 mls @ 150 mls/hr IV ASDIRECTED MIGUEL ÁNGEL Last Admin: 04/27/21 20:23 Dose: 150 mls/hr Documented by: Oxytocin/Sodium Chloride (Oxytocin 30 Unit In Ns 0.9% 500 Ml Premix) 30 unit in 500 mls @ 500 mls/hr IV TITRATE MIGUEL ÁNGEL Tranexamic Acid 1,000 mg/ (Sodium Chloride) 110 mls @ 660 mls/hr IV ONETIME PRN PRN Reason: Bleeding Cefazolin Sodium/Dextrose 2 gm (/ Premix) 50 mls @ 100 mls/hr IV ONETIME ONE Stop: 04/27/21 17:29 Cefazolin Sodium/Dextrose (Ancef 2 Gm/50 Ml) Confirm Administered Dose 50 mls @ as directed .ROUTE .STK-MED ONE Stop: 04/27/21 17:10 Last Admin: 04/27/21 17:17 Dose: 100 mls/hr Documented by: Ropivacaine (Naropin 0.2%) Confirm Administered Dose 200 mls @ as directed .ROUTE .STK-MED ONE Stop: 04/27/21 19:23 Last Admin: 04/27/21 20:19 Dose: Not Given Documented by: Cefazolin Sodium/Dextrose 2 gm (/ Premix) 50 mls @ 100 mls/hr IV ONETIME ONE Stop: 04/27/21 22:36 Last Admin: 04/28/21 00:34 Dose: Not Given Documented by: Azithromycin 500 mg/ Sodium (Chloride) 250 mls @ 250 mls/hr IV ONETIME ONE Stop: 04/27/21 23:06 Last Admin: 04/28/21 00:35 Dose: Not Given Documented by: Sodium Chloride (Normal Saline (Advbag)) Confirm Administered Dose 250 mls @ as directed .ROUTE .STK-MED ONE Stop: 04/27/21 22:29 Last Admin: 04/28/21 01:10 Dose: Not Given Documented by: Acetaminophen (Ofirmev 1000 Mg/100 Ml) Confirm Administered Dose 100 mls @ as directed .ROUTE .STK-MED ONE Stop: 04/27/21 23:18 Cefazolin Sodium/Dextrose (Ancef 2 Gm/50 Ml) Confirm Administered Dose 50 mls @ as directed .ROUTE .STK-MED ONE Stop: 04/27/21 23:18 Lidocaine HCl (Lidocaine 1% 50 Ml Mdv) 50 ml INJECT ONETIME PRN PRN Reason: Laceration repair Methylergonovine Maleate (Methylergonovine 0.2 Mg/1 Ml Amp) 0.2 mg IM ASDIRECTED PRN PRN Reason: Post Hemorrhage Miscellaneous Medication (Phenylephrine Hcl In 0.9% Nacl 1 Mg/10 Ml Syringe) Confirm Administered Dose 1 mg .ROUTE .STK-MED ONE Stop: 04/27/21 23:18 Misoprostol (Misoprostol 200 Mcg Tab) 200 mcg PO ONETIME PRN PRN Reason: Post Hemorrhage Nalbuphine HCl (Nalbuphine 10 Mg/1 Ml Vial) 10 mg IVPUSH Q1H PRN PRN Reason: Pain (severe 7-10) Ondansetron HCl (Ondansetron 4 Mg/2 Ml Sdv) 4 mg IVPUSH Q4H PRN PRN Reason: Nausea/Vomiting Ondansetron HCl (Ondansetron 4 Mg/2 Ml Sdv) Confirm Administered Dose 4 mg .ROUTE .STK-MED ONE Stop: 04/27/21 23:18 Oxytocin (Oxytocin 10 Units/1 Ml Sdv) Confirm Administered Dose 30 unit .ROUTE .STK-MED ONE Stop: 04/27/21 23:18 Sterile Water (Water For Irrigation,Sterile 1,000 Ml Container) 1,000 ml IRR ASDIRECTED PRN PRN Reason: delivery - Infant Interaction Disposition, : in Room with Family Support Person: - Recovery Exam Fundal Tone: Firm Fundal Level: At Umbilicus Fundal Placement: Midline Lochia Amount: Small Lochia Color: Rubra/Red Perineum Description: Intact, Minimal Bruising/Swelling Episiotomy/Laceration: None Bladder Status: Indwelling Catheter in Place Urinary Elimination: Indwelling Catheter - Exam General: Alert, Oriented, Cooperative, No Acute Distress HEENT: Pupils Equal, Pupils Reactive, EOMI Neck: Supple, Trachea Midline, No JVD Lungs: Normal Respiratory Effort GI/Abdominal Exam: Soft, Non-Tender, No Distention Extremities: Normal Inspection, Normal Range of Motion, Non-Tender, No Pedal Edema Skin: Warm, Dry, Intact Wound/Incisions: Dressing Dry and Intact Neurological: No New Focal Deficit Psy/Mental Status: Alert, Normal Affect, Normal Mood - Problem List Review Problem List Initiated/Reviewed/Updated: Yes - My Orders Last 24 Hours: My Active Orders 04/27/21 15:20 Up ad Justyna [RC] ASDIRECTED Vital Signs [RC] PER UNIT ROUTINE Resuscitation Status Routine 04/27/21 16:00 Patient Status [ADT] Routine 04/27/21 16:03 Notify Provider [RC] PRN Up ad Justyna [RC] ASDIRECTED Sodium Chloride 0.9% [Normal Saline] 10 ml IV ASDIRECTED PRN Sodium Chloride 0.9% [Saline Flush] 10 ml FLUSH ASDIRECTED PRN Sodium Chloride 0.9% [Saline Flush] 2.5 ml FLUSH ASDIRECTED PRN Peripheral IV Insertion Adult [OM.PC] Routine 04/27/21 16:08 Bedrest Bathroom Privileges [RC] ASDIRECTED Communication Order [RC] ASDIRECTED Communication Order [RC] ASDIRECTED Notify Provider [RC] PRN Notify Provider [RC] PRN Terbutaline [Brethine] 0.25 mg SUBCUT ASDIRECTED PRN miSOPROStoL [Cytotec] 25 mcg VAG ONETIME PRN miSOPROStoL [Cytotec] 25 mcg VAG Q4H PRN 04/27/21 16:15 Oxytocin/0.9 % Sodium Chloride [Oxytocin 30 Unit in NS 0.9% 500 ML Premix] 30 unit in 500 ml IV TITRATE Medication Administration Instruction [OM.PC] Q3H 04/27/21 16:35 RPR (SYPHILIS SERO) W/ RFLX [REF] Routine - Assessment Assessment:: 21yo POD1 s/p primary LTCS due to NRFHR. Stable and recovering well. - Plan Plan:: - vitals stable - Hgb 10.2 this AM, bleeding light - tolerating PO, encouraged ambulation - fisher in place with good UO, remove this AM Continue inpatient management, possible discharge tomorrow
[2021-04-28] MEDS: HYDROmorphone 2 MG/ML Syringe IVPUSH ONE ×2 (08:40→10:17)
[2021-04-28] MEDS: Docusate Sodium 100 MG Cap PO SCH ×2 (08:43→20:23)
[2021-04-28] MEDS ORDERED: HYDROmorphone 2 MG/ML Syringe ONE (10:10)
[2021-04-29] MEDS: Ketorolac 30 MG/ML SDV IVPUSH SCH (00:38)
[2021-04-29] MEDS: Acetaminophen/oxyCODONE 325-5 MG Tab PO PRN ×4 (00:39→15:33)
[2021-04-29] MEDS ORDERED: Ibuprofen 800 MG Tab PO PRN (07:00)
--- NOTE | 2021-04-29 07:29 | PCM.PNPP ---
- General Info Date of Service: 04/29/21 Functional Status: Reports: Pain Controlled, Tolerating Diet, Ambulating, Urinating, Other (Passing flatus) - Review of Systems General: Reports: No Symptoms HEENT: Reports: No Symptoms Pulmonary: Reports: No Symptoms Cardiovascular: Reports: No Symptoms Gastrointestinal: Reports: No Symptoms Genitourinary: Reports: No Symptoms Musculoskeletal: Reports: No Symptoms Skin: Reports: No Symptoms Neurological: Reports: No Symptoms Psychiatric: Reports: No Symptoms - Patient Data Vital Signs - Most Recent: Last Vital Signs Temp 36.3 C 04/29/21 04:00 Pulse 87 04/29/21 04:00 Resp 18 04/29/21 04:00 BP 115/78 04/29/21 04:00 Pulse Ox 98 04/29/21 04:00 Weight - Most Recent: 250 lb I&O - Last 24 Hours: Intake & Output 04/28/21 04/29/21 04/29/21 22:59 06:59 14:59 Output Total 2300 Balance -2300 Med Orders - Current: Current Medications Bisacodyl (Bisacodyl 10 Mg Supp) 10 mg RECTAL ONETIME PRN PRN Reason: Constipation Diphenhydramine HCl (Diphenhydramine 50 Mg/Ml Sdv) 25 mg IVPUSH Q6H PRN PRN Reason: Itching or Nausea Docusate Sodium (Docusate Sodium 100 Mg Cap) 100 mg PO BID [facility] Last Admin: 04/28/21 20:23 Dose: 100 mg Documented by: Emollient Ointment (Lanolin 100% Cream 7 Gm Tube) 0 gm TOP ASDIRECTED PRN PRN Reason: Sore Nipples Ephedrine Sulfate (Ephedrine 50 Mg/Ml Sdv) 10 mg IVPUSH Q1M PRN PRN Reason: Hypotension Oxytocin/Sodium Chloride (Oxytocin 30 Unit In Ns 0.9% 500 Ml Premix) 30 unit in 500 mls @ 2 mls/hr IV TITRATE [facility]; Protocol Lactated Ringer's (Ringers, Lactated) 1,000 mls @ 500 mls/hr IV BOLUS [facility] Last Admin: 04/27/21 22:30 Dose: 500 mls/hr Documented by: Oxytocin/Sodium Chloride (Oxytocin 30 Unit In Ns 0.9% 500 Ml Premix) 30 unit in 500 mls @ 250 mls/hr IV TITRATE [facility] Lactated Ringer's (Ringers, Lactated) 1,000 mls @ 125 mls/hr IV ASDIRECTED [facility] Last Admin: 04/28/21 09:55 Dose: 125 mls/hr Documented by: Oxytocin/Lactated Ringer's (Pitocin In Lr 30 Units/500 Ml) 30 unit in 500 mls @ 999 mls/hr IV TITRATE [facility] Ibuprofen (Ibuprofen 800 Mg Tab) 800 mg PO Q8H PRN PRN Reason: Cramping Miscellaneous Medication (Phenylephrine Hcl In 0.9% Nacl 1 Mg/10 Ml Syringe) 0.1 mg IVPUSH Q1M PRN PRN Reason: Hypotension Misoprostol (Misoprostol 25 Mcg (1/4 Of 100 Mcg) Tab) 25 mcg VAG ONETIME PRN PRN Reason: Cervical Ripening Misoprostol (Misoprostol 25 Mcg (1/4 Of 100 Mcg) Tab) 25 mcg VAG Q4H PRN PRN Reason: Cervical Ripening Ondansetron HCl (Ondansetron 4 Mg/2 Ml Sdv) 4 mg IVPUSH Q4H PRN PRN Reason: Nausea/Vomiting Oxycodone/Acetaminophen (Acetaminophen/Oxycodone 325-5 Mg Tab) 1 tab PO Q4H PRN PRN Reason: Pain (severe 7-10) Oxycodone/Acetaminophen (Acetaminophen/Oxycodone 325-5 Mg Tab) 2 tab PO Q4H PRN PRN Reason: Pain (severe 7-10) Last Admin: 04/29/21 05:13 Dose: 2 tab Documented by: Ropivacaine (Ropivacaine/Pf 400 Mg/200 Ml Healthcare Interpreter) 400 mg EPIDUR ASDIRECTED [facility] Sodium Chloride (Sodium Chloride 0.9% 10 Ml Syringe) 10 ml FLUSH ASDIRECTED PRN PRN Reason: Keep Vein Open Sodium Chloride (Sodium Chloride 0.9% 2.5 Ml Syringe) 2.5 ml FLUSH ASDIRECTED PRN PRN Reason: Keep Vein Open Sodium Chloride (Sodium Chloride 0.9% 10 Ml Sdv) 10 ml IV ASDIRECTED PRN PRN Reason: IV Use Terbutaline Sulfate (Terbutaline 1 Mg/Ml Sdv) 0.25 mg SUBCUT ASDIRECTED PRN PRN Reason: Tacysystole Discontinued Medications Azithromycin (Azithromycin 500 Mg Vial) Confirm Administered Dose 500 mg .ROUTE .[facility]-MED ONE Stop: 04/27/21 22:28 Last Admin: 04/28/21 11:00 Dose: Not Given Documented by: Butorphanol Tartrate (Butorphanol 1 Mg/Ml Sdv) 1 mg IVPUSH Q1H PRN PRN Reason: Pain (severe 7-10) Carboprost Tromethamine (Carboprost Tromethamine 250 Mcg/1 Ml Amp) 250 mcg IM ASDIRECTED PRN PRN Reason: Post Hemorrhage Citric Acid/Sodium Citrate (Citric Acid/Sodium Citrate Solution 30 Ml Cup) 30 ml PO ONETIME ONE Stop: 04/27/21 22:08 Last Admin: 04/28/21 00:35 Dose: Not Given Documented by: Ephedrine Sulfate (Ephedrine 50 Mg/Ml Sdv) Confirm Administered Dose 50 mg .ROUTE .STK-MED ONE Stop: 04/27/21 23:18 Fentanyl (Fentanyl 100 Mcg/2 Ml Sdv) Confirm Administered Dose 100 mcg .ROUTE .STK-MED ONE Stop: 04/27/21 23:17 Glycopyrrolate (Glycopyrrolate 0.2 Mg/Ml Sdv) Confirm Administered Dose 0.4 mg .ROUTE .STK-MED ONE Stop: 04/27/21 23:18 Hydromorphone HCl (Hydromorphone 2 Mg/Ml Syringe) 0.5 mg IVPUSH ONETIME ONE Stop: 04/28/21 08:31 Last Admin: 04/28/21 10:17 Dose: 0.5 mg Documented by: Hydromorphone HCl (Hydromorphone 2 Mg/Ml Syringe) Confirm Administered Dose 2 mg .ROUTE .STK-MED ONE Stop: 04/28/21 10:11 Last Admin: 04/28/21 21:16 Dose: Not Given Documented by: Lactated Ringer's (Ringers, Lactated) 1,000 mls @ 150 mls/hr IV ASDIRECTED MIGUEL ÁNGEL Last Admin: 04/27/21 20:23 Dose: 150 mls/hr Documented by: Oxytocin/Sodium Chloride (Oxytocin 30 Unit In Ns 0.9% 500 Ml Premix) 30 unit in 500 mls @ 500 mls/hr IV TITRATE MIGUEL ÁNGEL Tranexamic Acid 1,000 mg/ (Sodium Chloride) 110 mls @ 660 mls/hr IV ONETIME PRN PRN Reason: Bleeding Cefazolin Sodium/Dextrose 2 gm (/ Premix) 50 mls @ 100 mls/hr IV ONETIME ONE Stop: 04/27/21 17:29 Cefazolin Sodium/Dextrose (Ancef 2 Gm/50 Ml) Confirm Administered Dose 50 mls @ as directed .ROUTE .STK-MED ONE Stop: 04/27/21 17:10 Last Admin: 04/27/21 17:17 Dose: 100 mls/hr Documented by: Ropivacaine (Naropin 0.2%) Confirm Administered Dose 200 mls @ as directed .ROUTE .STK-MED ONE Stop: 04/27/21 19:23 Last Admin: 04/27/21 20:19 Dose: Not Given Documented by: Cefazolin Sodium/Dextrose 2 gm (/ Premix) 50 mls @ 100 mls/hr IV ONETIME ONE Stop: 04/27/21 22:36 Last Admin: 04/28/21 00:34 Dose: Not Given Documented by: Azithromycin 500 mg/ Sodium (Chloride) 250 mls @ 250 mls/hr IV ONETIME ONE Stop: 04/27/21 23:06 Last Admin: 04/28/21 00:35 Dose: Not Given Documented by: Sodium Chloride (Normal Saline (Advbag)) Confirm Administered Dose 250 mls @ as directed .ROUTE .STK-MED ONE Stop: 04/27/21 22:29 Last Admin: 04/28/21 01:10 Dose: Not Given Documented by: Acetaminophen (Ofirmev 1000 Mg/100 Ml) Confirm Administered Dose 100 mls @ as directed .ROUTE .STK-MED ONE Stop: 04/27/21 23:18 Cefazolin Sodium/Dextrose (Ancef 2 Gm/50 Ml) Confirm Administered Dose 50 mls @ as directed .ROUTE .STK-MED ONE Stop: 04/27/21 23:18 Ketorolac Tromethamine (Ketorolac 30 Mg/Ml Sdv) 30 mg IVPUSH Q6H MIGUEL ÁNGEL Stop: 04/29/21 01:16 Last Admin: 04/29/21 00:38 Dose: 30 mg Documented by: Lidocaine HCl (Lidocaine 1% 50 Ml Mdv) 50 ml INJECT ONETIME PRN PRN Reason: Laceration repair Methylergonovine Maleate (Methylergonovine 0.2 Mg/1 Ml Amp) 0.2 mg IM ASDIRECTED PRN PRN Reason: Post Hemorrhage Miscellaneous Medication (Phenylephrine Hcl In 0.9% Nacl 1 Mg/10 Ml Syringe) Confirm Administered Dose 1 mg .ROUTE .STK-MED ONE Stop: 04/27/21 23:18 Misoprostol (Misoprostol 200 Mcg Tab) 200 mcg PO ONETIME PRN PRN Reason: Post Hemorrhage Nalbuphine HCl (Nalbuphine 10 Mg/1 Ml Vial) 10 mg IVPUSH Q1H PRN PRN Reason: Pain (severe 7-10) Ondansetron HCl (Ondansetron 4 Mg/2 Ml Sdv) 4 mg IVPUSH Q4H PRN PRN Reason: Nausea/Vomiting Ondansetron HCl (Ondansetron 4 Mg/2 Ml Sdv) Confirm Administered Dose 4 mg .ROUTE .STK-MED ONE Stop: 04/27/21 23:18 Oxytocin (Oxytocin 10 Units/1 Ml Sdv) Confirm Administered Dose 30 unit .ROUTE .STK-MED ONE Stop: 04/27/21 23:18 Sterile Water (Water For Irrigation,Sterile 1,000 Ml Container) 1,000 ml IRR ASDIRECTED PRN PRN Reason: delivery - Infant Interaction Disposition, : [place] in Room with Family Infant Interaction: Holding Infant Support Person: - Recovery Exam Fundal Tone: Firm Fundal Level: 2 Fingerbreadths Below Umbilicus Fundal Placement: Midline Lochia Amount: Scant Lochia Color: Rubra/Red Perineum Description: Intact, Minimal Bruising/Swelling Episiotomy/Laceration: None Bladder Status: Voiding Urinary Elimination: Voided - Exam General: Alert, Oriented, Cooperative, No Acute Distress HEENT: Pupils Equal, Pupils Reactive Neck: Supple, Trachea Midline, No JVD Lungs: Normal Respiratory Effort GI/Abdominal Exam: Soft, Non-Tender, No Distention Extremities: Normal Inspection, Normal Range of Motion, Non-Tender, No Pedal Edema Skin: Warm, Dry, Intact Wound/Incisions: Dressing Dry and Intact Neurological: No New Focal Deficit Psy/Mental Status: Alert, Normal Affect, Normal Mood - Problem List Review Problem List Initiated/Reviewed/Updated: Yes - Assessment Assessment:: 21yo POD2 s/p primary LTCS due to NRFHR. Stable and recovering well. - Plan Plan:: - vitals stable - Hgb 10.2 postop, denies s/s of anemia, bleeding light - tolerating PO, encouraged ambulation - pain controlled Continue inpatient management, possible discharge tomorrow
[2021-04-29] MEDS: Docusate Sodium 100 MG Cap PO SCH (09:17)
== END 2021-04-29 19:30 | disposition home or self-care (01) | DRG 540 ==
LOC: MW.OBCHECK 15:15 → MW.OB 16:00 → OBSVTOIN 23:04 → MW.OB 04-28 13:00
PROVIDERS: ADMIT Obstetrics & Gynecology; ATTEND Obstetrics & Gynecology
PROC: 10D00Z1 Extraction of Products of Conception, Low, Open Approach (ICD-10-PCS; principal; 2021-04-27)
PROC: 10H07YZ Insertion of Other Device into Products of Conception, Via Natural or Artificial Opening (ICD-10-PCS; 2021-04-27)
DX: O42.02 Full-term premature rupture of membranes, onset of labor within 24 hours of rupture (principal); O99.824 Streptococcus B carrier state complicating childbirth; O76 Abnormality in fetal heart rate and rhythm complicating labor and delivery; O99.214 Obesity complicating childbirth; Z20.822 Contact with and (suspected) exposure to COVID-19; Z3A.38 38 weeks gestation of pregnancy; Z37.0 Single live birth; Z88.0 Allergy status to penicillin; Z88.1 Allergy status to other antibiotic agents; Z87.891 Personal history of nicotine dependence
CPT/HCPCS: 01967; 01968; 36415; 59025; 80053; 82570; 82803; 84112; 84156; 84550; 85014; 85018; 85027; 86592; 86850; 86900; 86901; 88307; A9270-GY; J0131; J0456; J0690; J1170; J1885; J2370; J2405; J2590; J2795; J3010; J3490; J7050; J7120; U0002

== ENCOUNTER 2022-07-20 14:10 | Emergency (ER) | payer BC ==
[2022-07-20] MEDS ORDERED: Sodium Chloride 0.9% 10 ML Syringe FLUSH PRN (15:59)
[2022-07-20] MEDS ORDERED: Sodium Chloride 0.9% 2.5 ML Syringe FLUSH PRN (15:59)
[2022-07-20] MEDS ORDERED: Sodium Chloride 0.9% 1,000 ML IV ONE (16:00)
[2022-07-20] MEDS ORDERED: LORazepam 2 MG/ML SDV IVPUSH ONE (16:01)
[2022-07-20 17:10] LABS: CARBON DIOXIDE,CO2 22.9 mmol/L (21.0-32.0)
== END 2022-07-20 19:13 | disposition home or self-care (01) ==
LOC: MW.ED 14:10
DX: R07.89 Other chest pain (principal); Z88.0 Allergy status to penicillin; Z88.1 Allergy status to other antibiotic agents
CPT/HCPCS: 36415; 71045; 80053; 80305; 81025; 84443; 84484; 85025; 85379; 93005; 96361; 96374; 99285; J2060; J3490; J7030

== ENCOUNTER 2024-03-09 04:26 | Inpatient (IN) | payer BC ==
[2024-03-09] MEDS: Lactated Ringers 1,000 ML IV SCH (05:00)
[2024-03-09] MEDS ORDERED: Sodium Chloride 0.9% 10 ML Syringe FLUSH PRN ×2 (05:04→08:39)
[2024-03-09] MEDS ORDERED: Sodium Chloride 0.9% 20 ML SDV IV PRN (05:04)
[2024-03-09] MEDS ORDERED: Sodium Chloride 0.9% 2.5 ML Syringe FLUSH PRN ×2 (05:04→08:39)
[2024-03-09] MEDS ORDERED: Oxytocin/0.9 % Sodium Chloride 30 UNIT/500 ML BAG IV SCH ×2 (05:15→08:45)
[2024-03-09 05:46] LABS: HEMATOCRIT 34.5 % (37.0-47.0); HEMOGLOBIN 11.1 g/dL (12.0-16.0); MEAN CORPUSCULAR HEMOGLOBIN 26.8 pg (28.0-32.0); MEAN CORPUSCULAR HGB CONC 32.2 g/dL (32.0-36.0); MEAN CORPUSCULAR VOLUME 83.3 fL (83.0-99.0); MEAN PLATELET VOLUME 10.1 fL (9.4-12.3); PLATELET COUNT,PLT 197 K/uL (150-400); RED BLOOD CELL COUNT 4.14 M/uL (4.10-5.30); WHITE BLOOD CELL COUNT,WBC 8.38 K/uL (3.9-11.3)
[2024-03-09] MEDS: Butorphanol 2 MG/ML SDV IVPUSH ONE (05:54)
[2024-03-09] MEDS: Promethazine 25 MG/ML SDV IM ONE (05:55)
[2024-03-09 06:17] LABS: APPEARANCE,URINE SLT CLOUDY; BILIRUBIN,URINE NEGATIVE (NEGATIVE); COLOR,URINE YELLOW; GLUCOSE,URINE NEGATIVE (NEGATIVE); KETONES,URINE NEGATIVE (NEGATIVE); LEUKOCYTE ESTERASE,URINE NEGATIVE (NEGATIVE); NITRITE,URINE NEGATIVE (NEGATIVE); OCCULT BLOOD,URINE NEGATIVE (NEGATIVE); PH,URINE 6.5 (5.0-8.0); PROTEIN,URINE NEGATIVE (NEGATIVE); UROBILINOGEN,URINE 0.2 EU/dL (<2.0)
[2024-03-09] MEDS ORDERED: Naloxone 0.4 MG/ML SDV IVPUSH PRN (07:04)
[2024-03-09] MEDS ORDERED: Phenylephrine HCl In 0.9% NaCl 1 MG/10 ML Syringe IVPUSH PRN (07:04)
[2024-03-09] MEDS ORDERED: Albuterol 0.083% 2.5 MG/3 ML Neb Soln NEB PRN (07:04)
[2024-03-09] MEDS ORDERED: ePHEDrine 50 MG/ML SDV IVPUSH PRN (07:04)
[2024-03-09] MEDS ORDERED: droPERidol 5 MG/2 ML SDV IVPUSH PRN (07:04)
[2024-03-09] MEDS ORDERED: HYDROmorphone 1 MG/ML Syringe IVPUSH PRN (07:04)
[2024-03-09] MEDS ORDERED: fentaNYL 50 MCG/ML SDV IVPUSH PRN (07:04)
[2024-03-09] MEDS ORDERED: fentaNYL 100 MCG/2 ML SDV IVPUSH PRN (07:04)
[2024-03-09] MEDS ORDERED: Nalbuphine 10 MG/1 ML Vial IVPUSH PRN (07:04)
[2024-03-09] MEDS ORDERED: Morphine 2 MG/ML SYRINGE IVPUSH PRN (07:04)
[2024-03-09] MEDS ORDERED: Ondansetron 4 MG/2 ML SDV IVPUSH PRN ×3 (07:04→08:39)
[2024-03-09] MEDS ORDERED: diphenhydrAMINE 50 MG/ML SDV IVPUSH PRN (07:04)
[2024-03-09] MEDS ORDERED: Metoclopramide 10 MG/2 ML SDV IVPUSH PRN (07:04)
[2024-03-09] MEDS ORDERED: dexmedeTOMIDine HCl 200 MCG/2 ML SDV ONE (07:11)
[2024-03-09] MEDS ORDERED: Phenylephrine 1% 10 MG/ML SDV ONE (07:11)
[2024-03-09] MEDS ORDERED: Morphine PF 10 MG/10 ML SDV ONE (07:11)
[2024-03-09] MEDS ORDERED: Ropivacaine 0.5% 5 MG/ML 30 ML SDV ONE (07:16)
[2024-03-09] MEDS ORDERED: Dexamethasone 4 MG/ML 5 ML MDV ONE (07:16)
[2024-03-09] MEDS ORDERED: Oxytocin 10 Units/1 ML SDV ONE ×2 (07:16→07:57)
[2024-03-09] MEDS ORDERED: Tranexamic Acid 1,000 MG/10 ML Vial ONE (07:16)
[2024-03-09] MEDS ORDERED: Azithromycin 500 MG Vial ONE (07:24)
[2024-03-09] MEDS: Clindamycin Phosphate in D5W 900 MG in Premix Bag 1 BAG IV ONE (07:30)
[2024-03-09] MEDS ORDERED: ePHEDrine 50 MG/ML SDV ONE (07:38)
[2024-03-09] MEDS ORDERED: Ondansetron 4 MG/2 ML SDV ONE (07:50)
[2024-03-09] MEDS ORDERED: Carboprost Tromethamine 250 MCG/1 mL Vial IM PRN (08:39)
[2024-03-09] MEDS ORDERED: Methylergonovine 0.2 MG/1 ML Amp IM ONE (08:39)
[2024-03-09] MEDS ORDERED: Lanolin 100% Cream 7 GM Tube TOP PRN (08:39)
[2024-03-09] MEDS ORDERED: Measles, Mumps & Rubella Vaccine 0.5 ML SDV SUBCUT ONE (08:39)
[2024-03-09] MEDS ORDERED: oxyCODONE 5 MG Tab PO PRN (08:39)
[2024-03-09] MEDS ORDERED: Misoprostol 200 MCG Tab RECTAL PRN (08:39)
[2024-03-09] MEDS ORDERED: Tranexamic Acid 1,000 MG in Sodium Chloride 0.9% 100 ML IV PRN (08:39)
[2024-03-09 08:54] LABS: PH,UMBILICAL ARTERIAL 7.169 (7.18-7.38); PH,UMBILICAL VENOUS 7.212 (7.25-7.45)
[2024-03-09] MEDS: Docusate Sodium 100 MG Cap PO SCH (10:25)
[2024-03-09] MEDS: ePHEDrine 50 MG/ML SDV IM ONE (10:48)
[2024-03-09] MEDS: Ketorolac 30 MG/ML SDV IVPUSH SCH (10:50)
[2024-03-09] MEDS: Acetaminophen 1,000 MG in Premix Bag 1 BAG IV SCH (11:29)
[2024-03-10] MEDS: Citric Acid/Sodium Citrate Solution 30 ML Cup PO ONE (00:23)
[2024-03-10 06:25] LABS: BASOPHILS ABSOLUTE AUTO 0.03 K/uL (0.00-0.20); BASOPHILS PERCENT AUTO 0.3 % (0.0-1.0); EOSINOPHILS ABSOLUTE AUTO 0.01 K/uL (0.00-0.45); EOSINOPHILS PERCENT AUTO 0.1 % (0.0-6.0); HEMATOCRIT 23.1 % (37.0-47.0); HEMOGLOBIN 7.5 g/dL (12.0-16.0); IMMATURE GRAN ABSOLUTE AUTO 0.06 K/uL (0.00-0.05); IMMATURE GRAN PERCENT AUTO 0.5 % (0.0-0.4); LYMPHOCYTES PERCENT AUTO 22.7 % (24.0-44.0); MEAN CORPUSCULAR HGB CONC 32.5 g/dL (32.0-36.0); MEAN CORPUSCULAR VOLUME 83.1 fL (83.0-99.0); MEAN PLATELET VOLUME 10.3 fL (9.4-12.3); MONOCYTES ABSOLUTE AUTO 0.63 K/uL (0.00-0.80); MONOCYTES PERCENT AUTO 5.3 % (0.0-8.0); NEUTROPHILS ABSOLUTE AUTO 8.45 K/uL (1.80-7.70); NEUTROPHILS PERCENT AUTO 71.1 % (41.0-71.0); PLATELET COUNT,PLT 177 K/uL (150-400); RED BLOOD CELL COUNT 2.78 M/uL (4.10-5.30); WHITE BLOOD CELL COUNT,WBC 11.88 K/uL (3.9-11.3)
[2024-03-10] MEDS: oxyCODONE 5 MG Tab PO PRN (13:27)
[2024-03-10] MEDS ORDERED: Sennosides/Docusate Sodium 50-8.6 MG Tab PO PRN (14:31)
[2024-03-10] MEDS: Sodium Ferric Gluconate Cmplex 125 MG in Sodium Chloride 0.9% 100 ML IV SCH (14:59)
[2024-03-10] MEDS: Ferrous Sulfate 325 MG Tab PO SCH (17:02)
[2024-03-10] MEDS: Acetaminophen/oxyCODONE 325-5 MG Tab PO PRN (17:12)
[2024-03-11] MEDS: Ibuprofen 800 MG Tab PO PRN (04:11)
[2024-03-11] MEDS: Acetaminophen 500 MG Tab PO PRN (10:51)
== END 2024-03-11 13:58 | disposition home or self-care (01) | DRG 540 ==
LOC: MW.OB 04:26
PROVIDERS: ADMIT Obstetrics & Gynecology; ATTEND Obstetrics & Gynecology
PROC: 10D00Z1 Extraction of Products of Conception, Low, Open Approach (ICD-10-PCS; principal; 2024-03-09)
DX: O99.214 Obesity complicating childbirth (principal); Z37.0 Single live birth; O90.81 Anemia of the puerperium; D62 Acute posthemorrhagic anemia; O34.211 Maternal care for low transverse scar from previous cesarean delivery; Z3A.39 39 weeks gestation of pregnancy
CPT/HCPCS: 36415; 81003; 82803; 85025; 85027; 86592; 86850; 86900; 86901; A9270-GY; J0131; J0456; J0595; J0736; J1100; J1885; J2274; J2371; J2405; J2550; J2590; J2795; J2916; J3490; J7120

== ENCOUNTER 2024-03-14 12:27 | Emergency (ER) | payer BC ==
[2024-03-14] MEDS: HYDROmorphone 1 MG/ML Syringe IM ONE (14:47)
[2024-03-14] MEDS: Ketorolac 30 MG/ML SDV IM ONE (14:48)
== END 2024-03-14 17:14 | disposition home or self-care (01) ==
LOC: MW.ED 12:27
DX: I82.612 Acute embolism and thrombosis of superficial veins of left upper extremity (principal); R03.0 Elevated blood-pressure reading, without diagnosis of hypertension; E66.9 Obesity, unspecified; Z86.16 Personal history of COVID-19; Z90.49 Acquired absence of other specified parts of digestive tract; Z75.8 Other problems related to medical facilities and other health care; Z79.899 Other long term (current) drug therapy; Z88.0 Allergy status to penicillin; Z88.1 Allergy status to other antibiotic agents; Z68.41 Body mass index [BMI] 40.0-44.9, adult
CPT/HCPCS: 93971; 96372; 99283; J1170; J1885